=== PATIENT | female | born 2000 | race African-American/Black ===

== ENCOUNTER 2022-05-19 14:18 | Emergency (ER) | payer OTHER | END 2022-05-19 16:06 | disposition home or self-care (01) | LOC: CSHERS 14:18 | DX: S63.501A Unspecified sprain of right wrist, initial encounter (principal); S60.012A Contusion of left thumb without damage to nail, initial encounter; V89.2XXA Person injured in unspecified motor-vehicle accident, traffic, initial encounter | CPT/HCPCS: 99283 ==